=== PATIENT | female | born 1965 | race Caucasian/White ===

== ENCOUNTER → 2017-04-21 | Outpatient (CLI) | payer BC ==
--- NOTE | 2017-04-24 07:57 | MRI ---
The MRI left hip without contrast Indication: Hip pain with concern for rectus femoris tendon rupture Technique: Multiplanar, multi sequence imaging of the left hip without IV contrast administration. Findings: Bone marrow signal is preserved throughout the visualized lumbar spine and sacrum. SI joint s demonstrate no significant increased fluid however there is small amount of subchondral edema withi n the iliac portion of left SI joint likely degenerative. Visualized soft tissues of the left hip and deep pelvis demonstrate no acute abnormality. There is both mild thinning and chondromalacia of the left femoral acetabular articular cartilage. Ve ry small amount of subchondral bone marrow edema is noted within the superior acetabulum. There is no abnormal signal identified within the labrum. There is a tiny focus of increased T2 signal within th e anterior superior hip joint adjacent to the labrum seen on image 9, series 701 which is indetermina te however suspicious for a small paralabral cyst. The left femoral head demonstrates normal convexit y without subchondral collapse or bone marrow edema. There is no abnormal marrow signal within the fe moral neck to suggest insufficiency fracture. There is a small amount of left hip joint fluid. There is increased signal at the origin of the rectus femoris muscle seen on image 5 of series 701 co nsistent with low-grade tear/strain of the rectus femoris muscle. There is no full thickness tear or retraction. The ileus psoas muscle and tendon are intact. There is mild increased T2 signal at the di stal attachment of the gluteus medius muscle consistent with strain without full thickness tear or re traction. The hamstring tendons are normal. The adductor musculature is intact. There is mild subchondral edema and osteophyte formation within the pubic symphysis joint consistent with osteitis pubis. Impression: 1. There is a globular morphology and intermediate signal within the anterior superior acetabular lab rum with a small cleft of fluid adjacent to the labrum likely representing a paralabral cyst in the s etting of subacute or chronic labral tear. 2. Low-grade strains of the rectus femoris and gluteus medius tendons without high-grade or full thic kness tearing . 3. Mild left femoral acetabular osteoarthrosis evidenced by diffuse mild thinning and chondromalacia of the femoral acetabular articular cartilage and mild subchondral marrow edema within the superior a cetabulum . 4. 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 Reported By:
== END | disposition home or self-care (01) | DRG 563 ==
LOC: RAD 15:04
PROVIDERS: ATTEND Orthopaedic Surgery
DX: S39.013A Strain of muscle, fascia and tendon of pelvis, initial encounter (principal); X58.XXXA Exposure to other specified factors, initial encounter; M16.12 Unilateral primary osteoarthritis, left hip
CPT/HCPCS: 73721

== ENCOUNTER 2017-05-08 09:14 | Day surgery (SDC) | payer BC ==
[2017-05-08] MEDS ORDERED: CELESTONE SOLUSPAN IM ONE (09:19)
[2017-05-08] MEDS ORDERED: KENALOG INJ 40 MG IM ONE (09:19)
[2017-05-08] MEDS: XYLOCAINE 1 % (PLAIN) ONE ×2 (10:43→10:52)
[2017-05-08 11:18] VITALS: BP 137/75
== END 2017-05-08 11:10 | disposition home or self-care (01) | DRG 563 ==
LOC: SURG1 09:14
PROVIDERS: ATTEND Orthopaedic Surgery
PROC: BQ11ZZZ Fluoroscopy of Left Hip (ICD-10-PCS; 2017-05-08)
PROC: 3E0U33Z Introduction of Anti-inflammatory into Joints, Percutaneous Approach (ICD-10-PCS; principal; 2017-05-08 09:45)
DX: S39.013A Strain of muscle, fascia and tendon of pelvis, initial encounter (principal); X58.XXXA Exposure to other specified factors, initial encounter
CPT/HCPCS: 20610; 76000; 77002; J2001; J3301